=== PATIENT | male | born 1965 | race Caucasian/White ===

== ENCOUNTER 2019-01-16 07:03 | Day surgery (SDC) | payer OTHER, SELFPAY ==
[2019-01-16 07:27] VITALS: BP 118/68; PULSE 74; RESP 16; TEMP 36.3; O2SAT 99
[2019-01-16] MEDS: Lactated Ringers 1,000 ML 80 ML IV (07:48)
--- NOTE | 2019-01-16 09:08 | BOWEL_PTH ---
PATIENT: Austin Andrea LOC: [facility] U#:[id number] AGE/SX: 53/M ROOM: RE01/16/[address]: Austin Briseno III : 1965 BED: DIS: 01/16/2019 SPEC #: [id number] RECD: 01/16/19 12:51 STATUS: LAZARUS KEYES #: [id number] ITA: 01/16/19 09:[address]: Austin Briseno III DEPT: Surgical Specimen RECD BY: Genoveva Alexander ENTERED: 01/16/19 12:51 SP TYPE: Bowel OTHR DR: Clinton Jacobson Tissues: 1 - BIOPSY BOWEL Procedures: GROSS AND MICRO LEVEL 4 Comments: [id number]
--- NOTE | 2019-01-16 09:15 | W.COLOREPORT ---
Date of service: 01/16/19 Time of Service: 09:15 Colonoscopy Report Date of procedure: 01/16/19 Pre-op diagnosis general: screening colonoscopy Post-op diagnosis procedure note: other (decending flat poyp, mild sigmoid diverticulosis) Procedure: screening colonoscopy with polypectomy Surgeon: Austin Briseno III Anesthesia proc note operative: MAC Pathology: other (decending colon) Complications: None Disposition: PACU Prep: GoLYTEAIDEN Procedure Description: After informed consent was obtained the patient was taken to the procedure room and placed in a left decubitous position. Monitors were applied and a time out was done. The patients name, date of , procedure, allergies to medications and metal in their body was reviewed. The patient was then sedated. Once sedated and comfortable a rectal exam was done. External exam was normal. Internal exam revealed a normal sphincter tone and no palpable masses. The prostate normal. The scope was then introduced and retrofelexed. NO internal hemorrhoids were identified. The scope was then advanced to the cecum with no difficulty. The TI and appendiceal orifice were identified. The prep was adequate. The scope was then slowly retracted over 10 minutes back into the rectum. A Polyp were removed at descending colon. The scope was removed and the patient was woken up and taken back to Same day surgery in stable condition. The patient tolerated the procedure well and there were no immediate complications. Follow up: The patient should follow up in ? years, pending pathology, unless they develop changes in bowel habits or other new gastrointestinal complaints.
--- NOTE | 2019-01-16 09:19 | W.PM.DSUDISC ---
Discharge Plan Disposition Patient Disposition: HOME Condition: Stable Discharge Details Reason For Visit: screening colonoscopy Attending Provider: Austin Briseno III Primary Care Provider: Clinton Jacobson Home Meds and New Rx's Prescriptions: Continued coenzyme Q10 10 mg capsule 10 mg PO DAILY RF: 0 omega-3 fatty acids [Fish Oil Concentrate] 1,000 mg capsule 1,000 mg PO DAILY RF: 0 multivitamin tablet 1 tab PO DAILY RF: 0 resveratrol 50 mg capsule 50 mg PO DAILY RF: 0 cholecalciferol (vitamin D3) 1,000 unit capsule 1,000 unit PO DAILY RF: 0 yohimbe bark [Yohimbe] 500 mg capsule 500 mg PO DAILY RF: 0 bisacodyl [Dulcolax (bisacodyl)] 5 mg tablet,delayed release (DR/EC) 5 mg PO ONCE Qty: 4 RF: 0 polyethylene glycol 3350 17 gram/dose powder 255 g PO ONCE Qty: 255 RF: 0 Discharge Instructions Activity:: Activity as Tolerated Diet:: As Tolerated Discharge Orders Discharge Orders: Discharge Order (Routine); Ordered 01/16/19 Ordered By: Austin Briseno III DS: Diagnosis Discharge Diagnosis (1) Screening for colon cancer: Status: Acute (2) Polyp of descending colon: Status: Acute
[2019-01-16 09:50] VITALS: BP 125/69; PULSE 67; RESP 16; TEMP 35.6; O2SAT 99
== END 2019-01-16 10:30 | disposition home or self-care (01) ==
PROVIDERS: PCP Naturopath; Visit Provider Surgery
PROC: 0DJD8ZZ Inspection of Lower Intestinal Tract, Via Natural or Artificial Opening Endoscopic (ICD-10-PCS; CPT 45378; principal; 2019-01-16 08:45)
DX: Z12.11 Encounter for screening for malignant neoplasm of colon (principal); D12.4 Benign neoplasm of descending colon; G47.33 Obstructive sleep apnea (adult) (pediatric)
CPT/HCPCS: 45380; 88305

== ENCOUNTER 2019-07-23 11:52 | Day surgery (SDC) | payer OTHER, SELFPAY ==
[2019-07-23] VITALS (8 sets, daily range): BP systolic 130–179; BP diastolic 83–101; PULSE 64–77; RESP 12–17; TEMP 36.2–37.3; O2SAT 97–99
[2019-07-23] MEDS: Lactated Ringers 1,000 ML 100 ML IV (12:33)
--- NOTE | 2019-07-23 13:14 | PDOC.DSDIS_ITS ---
Discharge Plan Disposition Patient Disposition: HOME Condition: Good Discharge Details Reason For Visit: (R) INGUINAL HERNIA Attending Provider: Gabby Fernandes Primary Care Provider: Clinton Jacobson Home Meds and New Rx's Prescriptions: New ibuprofen 800 mg tablet 800 mg PO Q8H PRN (Reason: pain) Qty: 30 RF: 0 hydrocodone-acetaminophen 5-325 mg tablet 1 tab PO Q6H PRN PRN (Reason: pain) Qty: 14 RF: 0 Continued coenzyme Q10 10 mg capsule 10 mg PO DAILY RF: 0 omega-3 fatty acids [Fish Oil Concentrate] 1,000 mg capsule 1,000 mg PO DAILY RF: 0 multivitamin tablet 1 tab PO DAILY RF: 0 resveratrol 50 mg capsule 50 mg PO DAILY RF: 0 cholecalciferol (vitamin D3) 1,000 unit capsule 1,000 unit PO DAILY RF: 0 yohimbe bark [Yohimbe] 500 mg capsule 500 mg PO DAILY RF: 0 Discharge Instructions Additional Instructions: The top bandage can be removed tomorrow. The steri strips will usually stick for about a week. When the edges start to curl up, they can be removed. It is okay to shower tomorrow, the water can run over the steri strips Do not swim or soak in a tub for two weeks Call for any concerns including fever, increased pain, vomiting, incision redness or drainage. Do not lift more than 15 pounds for four weeks. Walking and stairs are fine. Do not drive if on narcotic pain meds or if limited by pain. If constipated, okay to use a stool softener or milk of magnesia Referrals: Gabby Fernandes MD [ [facility] STAFF PHYSICIAN] - (Return in 10-14 days) Activity:: Do not lift more than 15 pounds Remove Dressings/Wound Care:: 24 hours Shower/Bathe:: 24 hours Diet:: As Tolerated Discharge Orders Discharge Orders: Discharge Order (Routine); Ordered 07/23/19 Ordered By: Gabby Fernandes DS: Diagnosis Discharge Diagnosis (1) Right inguinal hernia: Status: Acute (2) History of right inguinal hernia repair:
[2019-07-23] MEDS: ceFAZolin 2 GM/50 ML BAG IVPB (13:22)
[2019-07-23] MEDS: Bupivacaine LIPOSOME/PF 133 MG/10 ML VIAL IJ (13:27)
[2019-07-23] MEDS: Bupivacaine 0.25% Pres-Free 30 ML VIAL (13:27)
[2019-07-23] MEDS: HYDROmorphone 2 MG/ML VIAL IVP ×3 (14:53→15:20)
[2019-07-23] MEDS: Normal Saline Flush 10 ML SYR IV (15:04)
[2019-07-23] MEDS: HYDROcodone 5/Acetaminophen 325 TAB PO (15:57)
--- NOTE | 2019-07-24 08:21 | ROE_ITS ---
REPORT OF OPERATIVE PROCEDURE DATE OF PROCEDURE July 23, 2019 PREOPERATIVE DIAGNOSIS Right inguinal hernia. POSTOPERATIVE DIAGNOSIS Right indirect inguinal hernia. PROCEDURE Right inguinal hernia repair with mesh. SURGEON Gabby Fernandes M.D. [employer] Daphne Nicole ANESTHESIA Local, TAP block and General. INDICATIONS This is a 53-year-old man who recently developed pain in his right groin with activity and also a red ucible bulge. PROCEDURE DESCRIPTION He was placed supine on the operating table and after induction of general anesthetic had a TAP block placed. His right groin was then prepped and draped sterilely. The ASIS and pubic tubercle were id entified and a small transverse incision made between these two points after injecting local anesthet ic. The subcutaneous tissue was divided with cautery. An encountered vein was clamped, divided and l igated with #3-0 Vicryl tie. The external oblique fascia had a small incision made with the knife, wh ich was then extended bluntly through the internal ring and also extended laterally. The spermatic c ord was encircled at the level of the pubic tubercle with a Seth drain. Dissection within the spe rmatic cord revealed a medium sized hernia sac. This was dissected up to the internal ring. I then op ened it. There were no abdominal contents within it, so I suture ligated the sac with a #3-0 Vicryl t ie and amputated the excess. This retracted nicely back into the abdomen. A medium mesh plug was heather cted and some of the internal peddles removed; this was sutured into the internal ring with a #2-0 Pr olene stitch in the overlying musculature and also ____ mattress suture to ____ portion of the ingui nal ligament. A flat sheet of mesh was then sewn to the floor of the inguinal canal done in Lichtenst ein fashion. The mesh was noted to not be too tight around the spermatic cord. There was good hemosta sis so the external oblique fascia was closed with a running #2-0 Vicryl, as was Eran's fascia and the skin closed with a running #4-0 Monocryl subcuticular stitch. He tolerated the procedure well an d was stable to Recovery.
== END 2019-07-23 16:45 | disposition home or self-care (01) ==
PROVIDERS: PCP Naturopath; Visit Provider Surgery
PROC: (CPT 49505; principal; 2019-07-23 13:00)
DX: K40.90 Unilateral inguinal hernia, without obstruction or gangrene, not specified as recurrent (principal); G89.18 Other acute postprocedural pain; G47.30 Sleep apnea, unspecified
CPT/HCPCS: 49505; 76942; C1781; J0690; J1100; J1885; J2405

== ENCOUNTER 2021-06-30 14:22 | Emergency (ER) | payer OTHER, SELFPAY ==
[2021-06-30] VITALS (9 sets, daily range): BP systolic 128–175; BP diastolic 78–98; PULSE 79–86; RESP 16; TEMP 37.3–37.6; O2SAT 97–99
--- NOTE | 2021-06-30 14:15 | RT.EKG_ITS ---
APPROVED REPORT Exam: Resting ECG Reason for Exam: chest pain Patient Location: E HR:89 bpm ECG Measurements Heart Rate 89 AXIS UT 70 P 60 QRSd 88 QRS -49 QT 349 T 54 QTc 424 Conclusion Sinus rhythm...normal P axis, V-rate 60- 99 Probable left atrial enlargement...P >50mS, <-0.10mV V1 Left anterior fascicular block...axis(240,-40), init forces inf. Sinus. LAFB. No STEMI. I have reviewed and interpreted ECG and agree with software generated interpretation.
--- NOTE | 2021-06-30 14:30 | DI.RAD_ITS ---
Exam(s) XR CHEST 2V PA LATERAL EXAM: XR CHEST 2V PA LATERAL CLINICAL HISTORY: palpitations TECHNIQUE: 2D digital imaging was performed. COMPARISON: No exams were available for comparison FINDINGS: MEDIASTINUM: Normal. HEART: Normal. PULMONARY VASCULATURE: Normal. LUNGS: Clear. PLEURAL SPACE: No pleural effusion or pneumothorax. BONE:Within normal limits for the patient's age. OTHER FINDINGS:Normal. IMPRESSION: No acute pulmonary findings. DATA REPOSITORY: RADIATION DOSE DELIVERED:
--- NOTE | 2021-06-30 14:41 | W.ED.GENAD ---
Discharge Plan Disposition Patient Disposition: HOME Condition: Stable Discharge Details Clinical Impression: Symptomatic PVCs, Heart palpitations Primary Care Provider: Clinton Jacobson ED Provider: Ingrid London Home Meds and New Rx's Prescriptions: Continued coenzyme Q10 10 mg capsule 10 mg PO DAILY RF: 0 omega-3 fatty acids [Fish Oil Concentrate] 1,000 mg capsule 1,000 mg PO DAILY RF: 0 multivitamin tablet 1 tab PO DAILY RF: 0 resveratrol 50 mg capsule 50 mg PO DAILY RF: 0 cholecalciferol (vitamin D3) 1,000 unit capsule 1,000 unit PO DAILY RF: 0 ibuprofen 800 mg tablet 800 mg PO Q8H PRN (Reason: pain) Qty: 30 RF: 0 No Action testosterone 75 mg Pellet 0.75 mg DIRECTED RF: 0 Discharge Instructions Instructions: Heart Palpitations (ED) Additional Instructions: Your labs are reassuring here today. We were unable to see that you have multiple PVCs correlating with when you had your symptoms while you are on the phototypesetting equipment monitor. I would like to continue on a Holter monitor to look at the further in the frequency of these throughout the course today. Please follow respiratory therapy recommendations regard to your Holter monitor. Please discuss with your auditing specialist if this could be linked to your testosterone and potential change in medication or dosing. Referral for local primary care has been sent. If you develop chest pain, shortness of breath, persistent palpitations, difficulty breathing or other new/worsening symptoms please seek care urgently once again. Referrals: Clinton Jacobson [Primary Care Provider] - Medical Decision Making Patient is a pleasant 55-year-old gentleman presents due to complaint palpitations. Reports that he has had intermittent palpitations vertically. However, over the past week he has noted the to become more frequent. States that she has been noting these palpitations typically from the hours of testing to 5 qualities at work. She denies any increased stress at work. 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 He states that these are intermittent throughout that time and he does feel skipping beats when he palpates pulse. He is not short of breath or experiencing chest pain. He denies any discomfort in his neck, back, arms. He denies any recent illness. No cough, cold, fever/chills. States that he has had issues with his historically. He denies wearing a Holter monitor. No definitive diagnosis of his palpitations changes made in the past. On exam, patient appears nontoxic. Normal cardiac auscultation at this time. He has no lower extremity edema or calf tenderness. Lungs are clear. His description to be primarily concern for PVCs or PACs. However, I am concerned with the increase and frequency. Plan for baseline labs, chest x-ray. Patient does report that he also began taking testosterone from approximately 3 weeks ago. With that time the palpitations started. However, he had noted marked increase in the past week. Question if this office could be a side effect. Patient not hypoxic, tachycardic. He is endorsing shortness of breath or pleuritic pain. I do not see any evidence to suggest pulmonary embolism at this time. History not consistent with CHF, dissection. ACS is well my differential although certainly possibility, will screen with EKG and troponin. While waiting, the patient did have episode of palpitations again. We were able to correlate this with PVCs. No runs were appreciated. There is a dorsum of his symptoms. Labs reviewed. No leukocytosis. Stable H&H. No electrolyte abnormality or significant abnormality of BNP. Troponin within normal limits. TSH within normal limits. Patient I again reviewed the testosterone. I did review the literature and did not find any evidence to suggest that symptoms are typically linked to palpitations or PVARP. However, the timeline is quite suspicious for this. I have asked that he speak further with the auditing specialist was prescribing this and ask if there is any concern. We will also start the patient on a Holter monitor sulci, many PVCs he is having per day. Patient does not have a local primary care, I have asked her care management team to help arrange for prompt follow-up with primary care to discuss his PVCs and further results that may come from his Holter monitor. Return precautions were discussed. All his questions and concerns were addressed and he is in agreement with plan. HPI General Mode of arrival: ambulatory. Date/Time Provider Initiated Documentation: 06/30/21 14:24. Limitations to Documentation: no limitations. Information obtained by: patient and RN notes reviewed. History of Present Illness 55 year old M presents to the emergency department with the chief complaint of palpitations, described as mild (denies any pain), and is localized to the chest. Patient neck. Patient started experiencing this week(s) (about 3) and it has been intermittent (episodes have increased over the past week). No relieving factors improve symptom(s), Other factors that worsen symptoms (when at work) . Patient notes no other symptoms.; denies chest pain, cough, fever/chills, loss of appetite, nausea/vomiting, shortness of breath, syncope and weakness. Patient did receive the following treatments prior to arrival, none Related Data Home Medications Medication Instructions Recorded Confirmed cholecalciferol (vitamin D3) 25 1,000 unit PO DAILY 11/19/18 06/30/21 mcg (1,000 unit) capsule coenzyme Q10 10 mg capsule 10 mg PO DAILY cap 11/19/18 06/30/21 multivitamin 1 tab PO DAILY 11/19/18 06/30/21 omega-3 fatty acids 1,000 mg 1,000 mg PO DAILY 11/19/18 06/30/21 capsule resveratrol 50 mg capsule 50 mg PO DAILY cap 11/19/18 06/30/21 ibuprofen 800 mg PO Q8H PRN #30 tab 07/23/19 06/30/21 testosterone 0.75 mg DIRECTED 06/30/21 06/30/21 Previous Rx's Medication Instructions Recorded ibuprofen 800 mg PO Q8H PRN #30 tab 07/23/19 Allergies Allergy/AdvReac Type Severity Reaction Status Date / Time No Known Allergies Allergy Verified 06/30/21 14:32 General Stated Complaint: Palpitatns RODNEY: 2 Review of Systems Constitutional Constitutional: Reports as per HPI, Denies chills, Denies fever(s), Denies headache(s), Denies lethargy and Denies poor appetite Eyes Eyes: Denies change in vision ENT Ears, Nose, Mouth, and Throat: Denies dizziness and Denies headache(s) Cardiovascular Cardiovascular: Reports as per HPI, Denies chest pain, Denies chest pain at rest, Denies chest pain with activity, Denies syncope, Reports lightheadedness, Denies radiating jaw, neck or arm pain, Reports palpitations, Denies dyspnea and Denies dyspnea on exertion Respiratory Respiratory: Reports as per HPI, Denies chest congestion, Denies cough, Denies pain on inspiration, Denies pain with cough, Denies dyspnea, Denies dyspnea on exertion and Denies wheezing Gastrointestinal Gastrointestinal: Reports as per HPI, Denies abdominal pain, Denies diarrhea, Denies nausea and Denies vomiting Genitourinary Genitourinary: Denies system reviewed and no additional complaints, except as documented (denies change in urinary habits) Musculoskeletal Musculoskeletal: Reports as per HPI and Denies back pain Integumentary/Breasts Skin/Breast: Reports as per HPI and Denies rash Neurologic Neurologic: Reports as per HPI, Denies dizziness, Denies syncope and Denies headache(s) Endocrine Endocrine: Reports palpitations Allergic/Immunologic Allergic/Immunologic: Denies wheezing [facility] Medical History (Updated 06/30/21 @ 15:43 by LARA Ewing) Abnormal colonoscopy (01/16/19) 01/16/19, Dr Austin Briseno [facility], Tubular adenoma, repeat in five years. mg Heart palpitations Hyperlipidemia Intentional weight loss Knee joint pain bilateral Sleep apnea Pt states uses CPAP Tubular adenoma (01/16/19) 01/16/19, Dr Austin Briseno [facility], Tubular adenoma, repeat in five years. mg Surgical History History of right inguinal hernia repair 07/23/19, Dr Gabby Fernandes [facility], with mesh Hx of rhinoplasty Social History Smoking/Tobacco Use Status: Never Smoking risk assessment performed?: Yes Alcohol Intake: current Alcohol Intake frequency: holidays/special occasions only Drug use: Never Substance use type: does not use Do you feel safe at home: Yes Do you feel safe in your relationship?: Yes Exam Const General: cooperative, healthy appearing, comfortable, no acute distress and well developed Nutritional Appearance: average body habitus and well nourished Orientation: alert, awake and oriented x3 Resp Effort & Inspection: normal respiratory effort, able to speak in complete sentences and no respiratory distress Auscultation: clear to auscultation bilaterally, no rales, no rhonchi and no wheezes Cardio Rate: regular rate Rhythm: regular rhythm Heart Sounds: S1 normal and S2 normal GI Inspection: normal to inspection, no edema and non-distended Palpation: soft, no hepatosplenomegaly, not firm, no guarding, not rigid and nontender Auscultation: normal bowel sounds Skin General skin exam: no rashes or lesions noted Trauma: no lacerations or abrasions Neuro General: patient alert, patient awake and patient oriented x3 Cognition: normal cognition Speech: speech normal Gait: normal gait Extrem General: normal to inspection, capillary refill normal, no pedal edema, no calf tenderness and normal gait Psych Appearance: grossly normal and well kempt Mental Status: mental status grossly normal Speech and Movement: speech and movement normal Course Vital Signs Vital signs: Vital Signs Temperature 37.3 C 06/30/21 14:26 Pulse 86 06/30/21 14:26 Respiratory Rate 16 06/30/21 14:26 Blood Pressure 175/98 H 06/30/21 14:26 Pulse Oximetry 99 06/30/21 14:26 Temperature 37.3 C 06/30/21 14:26 Temperature Source Skin 06/30/21 14:26 Pulse 86 06/30/21 14:26 Respiratory Rate 16 06/30/21 14:26 Respiratory Effort 06/30/21 14:34 Blood Pressure 175/98 H 06/30/21 14:26 Blood Pressure Position Sitting 06/30/21 14:26 Pulse Oximetry 99 06/30/21 14:26 Oxygen Delivery Method Room Air 06/30/21 14:26 Oxygen Flow Rate 0 06/30/21 14:26
[2021-06-30 14:57] LABS: Abs Immature Grans 0.01 10^3/uL (0.0-0.06); Absolute Basophil Count 0.01 10^3/uL (0.0-0.2); Absolute Eosinophil Count 0.07 10^3/uL (0.0-0.7); Absolute Lymphocyte Count 1.33 10^3/uL (1.2-3.4); Absolute Monocyte Count 0.37 10^3/uL (0.1-0.8); Absolute Neutrophil Count 3.01 10^3/uL (1.2-6.7); Basophils % 0.2; Eosinophils % 1.5; HCT 46.2 % (40.0-50.0); HGB 15.4 g/dL (13.5-17.5); Immature Grans % 0.2; Lymphocytes % 27.7; MCH 30.6 pg (27.0-33.0); MCHC 33.3 % (32.0-36.0); MCV 91.8 fL (80-95); MPV 9.2 fL (8.0-11.0); Monocytes % 7.7; Neutrophils % 62.7; Nucleated RBC 0 %; Platelet Count 147 10^3/uL (130-400); RBC 5.03 10^6/uL (4.36-5.78); RDW 14.2 % (11.8-14.1); RDW-SD 47.3 fL
[2021-06-30 15:18] LABS: ALT 22 U/L (16-63); AST 11 U/L (15-37); Albumin 3.9 g/dL (3.4-5.0); Alkaline Phosphatase 46 U/L (46-116); Anion Gap 7.4 mmol/L (3-11); BUN 10 mg/dL (7-18); Bilirubin, Total 0.7 mg/dL (0.2-1.0); CO2 29.6 mmol/L (21.0-32.0); CREATININE 1.2 mg/dL (0.70-1.30); Calcium 8.5 mg/dL (8.5-10.1); Chloride 105 mmol/L (98-107); Glucose 89 mg/dL (74-106); Magnesium 2.4 mg/dL (1.8-2.4); Potassium 3.8 mmol/L (3.5-5.1); Sodium 142 mmol/L (136-145); TSH (W/Ref FT4) 1.65 uIU/mL (0.36-3.74); Troponin I < 0.05 ng/mL (<0.06)
--- NOTE | 2021-06-30 15:30 | HOLTER_ITS ---
APPROVED REPORT Conclusion There is a 48-hour monitor ordered for indication of palpitations. The patient was in normal sinus rhythm for the majority of the recording with an average heart rate o f 80 bpm. There were no episodes of ventricular tachycardia and rare PVCs. There were no episodes of supraventricular tachycardia and rare PACs. There were no episodes of atrial fibrillation, no pauses greater than 3 seconds and no evidence of hi gh-grade heart block. There were 9 patient triggered events. All these were associated with singular PACs.
--- NOTE | 2021-06-30 19:02 | NUR.NOTE ---
Nursing Note: referral given to care management for pcp follow up - libl 06/30/21
== END 2021-06-30 16:31 | disposition home or self-care (01) ==
PROVIDERS: Emergency Provider Physician Assistant; PCP Naturopath
DX: I49.3 Ventricular premature depolarization (principal); R00.2 Palpitations
CPT/HCPCS: 36415; 80053; 93005; 99284; 71046; 83735; 84443; 84484; 85025; 93010; 93225

== ENCOUNTER 2021-06-30 15:47 | Outpatient (RCR) | payer OTHER, SELFPAY | END 2021-07-01 23:59 | disposition home or self-care (01) | LOC: RT 15:47 | PROVIDERS: PCP Naturopath; Visit Provider Physician Assistant | DX: R00.2 Palpitations (principal) | CPT/HCPCS: 93226 ==

== ENCOUNTER 2021-07-24 02:48 | Outpatient (CLI) | payer OTHER, SELFPAY ==
[2021-07-24 08:28] LABS: Calculated LDL 135 mg/dL (<100); Cholesterol 212 mg/dL (<200); HDL Cholesterol 49 mg/dL (40-60); Triglyceride 144 mg/dL (<150)
== END 2021-07-24 02:49 | disposition home or self-care (01) ==
LOC: LBO 02:48
PROVIDERS: PCP Naturopath; Visit Provider Family Medicine
DX: E78.5 Hyperlipidemia, unspecified (principal)
CPT/HCPCS: 36415; 80061

== ENCOUNTER 2024-11-03 09:03 | Outpatient (CLI) | payer BC, SELFPAY ==
[2024-11-03 08:58] LABS: Abs Immature Grans 0.01 10^3/uL (0.0-0.06); Absolute Basophil Count 0.02 10^3/uL (0.0-0.2); Absolute Eosinophil Count 0.08 10^3/uL (0.0-0.7); Absolute Lymphocyte Count 1.08 10^3/uL (1.2-3.4); Absolute Neutrophil Count 3.12 10^3/uL (1.2-6.7); Basophils % 0.4 %; Eosinophils % 1.7 %; HCT 54.7 % (40.0-50.0); HGB 18.6 g/dL (13.5-17.5); Immature Grans % 0.2 %; Lymphocytes % 22.9 %; MCH 31.4 pg (27.0-33.0); MCV 92 fL (80-95); MPV 9.2 fL (8.0-11.0); Monocytes % 8.5 %; Neutrophils % 66.3 %; Platelet Count 155 10^3/uL (130-400); RBC 5.92 10^6/uL (4.36-5.78); RDW 12.6 % (11.8-14.1); RDW-SD 43.5 fL; WBC 4.71 10^3/uL (4.4-10.8)
[2024-11-03 09:05] LABS: Bilirubin Negative (Negative); Blood Trace-intact (Negative); Clarity Clear (Clear); Glucose Negative (Negative); Ketones Negative (Negative); Leukocyte Esterase Negative (Negative); Nitrite Negative (Negative); Urobilinogen 0.2 mg/dL (Up to 0.2)
[2024-11-03 09:09] LABS: Hemoglobin A1C 5.4 % (<5.7)
[2024-11-03 09:22] LABS: Bacteria Rare HPF (Negative); C & S Indicated? No; Casts Negative LPF (Negative); Crystals Negative HPF (Negative); Epithelial Cells Negative HPF (Negative); Mucus Negative (Negative); Other Cells Negative (Negative); RBC 0-2 HPF (0-2); WBC 0-2 HPF (0-5)
[2024-11-03 09:48] LABS: ALT 26 U/L (16-63); AST 16 U/L (15-37); Alkaline Phosphatase 57 U/L (46-116); Anion Gap 5.2 mmol/L (3-11); BUN 16 mg/dL (7-18); CO2 33.8 mmol/L (21.0-32.0); CREATININE 1.3 mg/dL (0.70-1.30); Calcium 8.8 mg/dL (8.5-10.1); Calculated LDL 117 mg/dL (<100); Chloride 104 mmol/L (98-107); Cholesterol 223 mg/dL (<200); Estimated GFR 64.07 (mL/min/1.73m2); Glucose 102 mg/dL (74-106); HDL Cholesterol 58 mg/dL (40-60); Potassium 3.9 mmol/L (3.5-5.1); Sodium 143 mmol/L (136-145); TSH 1.77 uIU/mL (0.36-3.74); Total Protein 7.5 g/dL (6.4-8.2); Triglyceride 240 mg/dL (<150); Vitamin B12 952 pg/mL (193-986); Vitamin D 25 Total 22.8 ng/mL (30-100)
[2024-11-03 21:22] LABS: CRP, High Sensitivity 1.75 mg/L (See Note)
[2024-11-04 13:32] LABS: ANA Interpretation Negative (Negative)
[2024-11-06 10:45] LABS: Apolipoprotein A1, S 147 mg/dL (>=120); Apolipoprotein B, S 117 mg/dL (See Comment); Apolipoprotein B/A 1 ratio 0.8 (See Comment)
[2024-11-10 11:47] LABS: Testosterone, Free 27.2 ng/dL (3.87-14.7); Testosterone, Total 853 ng/dL (240-950)
== END 2024-11-03 09:04 | disposition home or self-care (01) ==
LOC: LBO 09:03
PROVIDERS: PCP Family Medicine; Visit Provider Naturopath
DX: E66.3 Overweight (principal); R53.83 Other fatigue; H93.13 Tinnitus, bilateral; I10 Essential (primary) hypertension; E78.00 Pure hypercholesterolemia, unspecified; G25.81 Restless legs syndrome; I48.3 Typical atrial flutter; M47.27 Other spondylosis with radiculopathy, lumbosacral region; Z13.1 Encounter for screening for diabetes mellitus; D53.9 Nutritional anemia, unspecified; R35.0 Frequency of micturition; E55.9 Vitamin D deficiency, unspecified
CPT/HCPCS: 36415; 80053; 80061; 82172; 82306; 84402; 84403; 86141; 81003; 81015; 82607; 83036; 84443; 85025; 86038

== ENCOUNTER 2024-11-20 11:21 | Day surgery (SDC) | payer BC, SELFPAY ==
[2024-11-20] MEDS: Normal Saline 1,000 ML 30 ML IV (11:50)
[2024-11-20 11:51] VITALS: BP 150/90; PULSE 92; RESP 20; TEMP 36.2; O2SAT 97
--- NOTE | 2024-11-20 11:59 | W.ANESPRE ---
General Info Date of Service Date Performed: 11/20/24 Height: 6 ft 2 in Weight: 90.2 kg Body Mass Index (BMI): 25.5 Surgical Procedure: Operation Date: 11/20/24 10:50 Proposed Procedure Side Surgeon p Colonoscopy Zoe Ascencio, DO Actual Procedure Side Surgeon p Colonoscopy Not Applicable Zoe Ascencio, DO Meds Allergies and Home Medications Allergies Allergy/AdvReac Type Severity Reaction Status Date / Time No Known Allergies Allergy Verified 11/20/24 11:48 Home Medication ?Medication ?Instructions ?Recorded cholecalciferol (vitamin D3) 25 1,000 unit PO DAILY 11/19/18 mcg (1,000 unit) capsule coenzyme Q10 10 mg capsule 10 mg PO DAILY 11/19/18 multivitamin 1 tab PO DAILY 11/19/18 omega-3 fatty acids 1,000 mg 1,000 mg PO DAILY 11/19/18 capsule (Fish Oil Concentrate) resveratrol 50 mg capsule 50 mg PO DAILY 11/19/18 bisacodyl 5 mg tablet,delayed 5 mg PO ONCE colonscopy bowel prep 11/02/24 release (Dulcolax (bisacodyl)) #4 tabs polyethylene glycol 3350 17 238 g PO ONCE colonoscopy prep 11/02/24 gram/dose oral powder #238 grams Current Visit Medications: Current Medications Generic Name Dose Route Start Last Admin Trade Name Freq PRN Reason Stop Dose Admin Hyoscyamine Sulfate 0.125 mg 11/20/24 00:02 Hyoscyamine 0.125 Mg Sl/Oral/Chew SL 12/20/24 00:01 DIRECTED PRN Sodium Chloride 1,000 mls @ 30 mls/hr 11/20/24 11:15 Saline 1000ml Bag IV 12/20/24 11:14 INFUSION RUDI IV Miscellaneous Supplies 1 each 11/20/24 11:15 Iv Access IV 12/20/24 11:14 DIRECTED RUDI Ondansetron HCl 4 mg 11/20/24 00:02 Ondansetron 4 Mg/2 Ml Vial IVP 12/20/24 00:01 Q4H PRN PRN Nausea / Vomiting Sodium Chloride 0 ml 11/20/24 09:39 Normal Saline Flush 10 Ml Syr IVP 12/20/24 09:38 PRN PRN Sodium Chloride 0 ml 11/20/24 20:00 Normal Saline Flush 10 Ml Syr IVP 12/20/24 19:59 BID RUDI Sodium Chloride 0 ml 11/20/24 09:39 Normal Saline 10 Ml Vial IJ 12/20/24 09:38 DIRECTED PRN PFSH Active Problems Active Problems: Problem Status Onset Code Bilateral tinnitus Acute H93.13 Tinnitus Acute H93.19 Cellulitis of elbow Acute L03.119 Premature atrial beats Acute I49.1 Postop check Acute Z09 Right inguinal hernia Acute K40.90 Screening for colon cancer Acute Z12.11 Polyp of descending colon Acute D12.4 Heart palpitations Chronic R00.2 Knee joint pain Chronic M25.569 Intentional weight loss Acute Hyperlipidemia Chronic E78.5 Sleep apnea Chronic ~04/2018 G47.30 Medical History Medical History Abnormal colonoscopy (01/16/19) 01/16/19, Dr Austin Briseno [facility], Tubular adenoma, repeat in five years. mg Tubular adenoma (01/16/19) 01/16/19, [facility] Quiroz, Tubular adenoma, repeat in five years. mg Surgical History Surgical History History of surgical procedure on maxillary sinus pt. just reports jaw surgery History of right inguinal hernia repair 07/23/19, Dr Gabby Fernandes [facility], with mesh Hx of rhinoplasty Tobacco Smoking/Tobacco Use Status: Never Passive smoking exposure: Yes Alcohol Alcohol Intake: current Alcohol intake frequency: holidays/special occasions only Substance Use Substance use: Never Substance use type: does not use Details: alcohol: t-60 Vital Signs and Lab Results Vital Signs Most Recent Vital Signs in EMR: Most Recent Vital Signs Temp Pulse Resp BP Pulse Ox 36.2 C L 92 H 20 150/90 H 97 11/20/24 11:51 11/20/24 11:51 11/20/24 11:51 11/20/24 11:51 11/20/24 11:51 Lab Results Blood Type / Crossmatch: No Data to Display Complete Blood Count: White Blood Count 4.71 10^3/uL (4.4-10.8) 11/03/24 08:48 Red Blood Count 5.92 10^6/uL (4.36-5.78) H 11/03/24 08:48 Hemoglobin 18.6 g/dL (13.5-17.5) H 11/03/24 08:48 Hematocrit 54.7 % (40.0-50.0) H 11/03/24 08:48 Platelet Count 155 10^3/uL (130-400) 11/03/24 08:48 Complete Metabolic Panel: Sodium 143 mmol/L (136-145) 11/03/24 08:48 Potassium 3.9 mmol/L (3.5-5.1) 11/03/24 08:48 Chloride 104 mmol/L (98-107) 11/03/24 08:48 Carbon Dioxide 33.8 mmol/L (21.0-32.0) H 11/03/24 08:48 BUN 16 mg/dL (7-18) 11/03/24 08:48 Creatinine 1.3 mg/dL (0.70-1.30) 11/03/24 08:48 Est GFR (CKD-EPI 2020) 64.07 (mL/min/1.73m2) 11/03/24 08:48 Calcium 8.8 mg/dL (8.5-10.1) 11/03/24 08:48 Albumin 4.0 g/dL (3.4-5.0) 11/03/24 08:48 Glucose 102 mg/dL (74-106) 11/03/24 08:48 Hemoglobin A1c 5.4 % (<5.7) 11/03/24 08:48 Liver Function Panel: Alanine Aminotransferase (ALT/SGPT) 26 U/L (16-63) 11/03/24 08:48 Aspartate Amino Transf (AST/SGOT) 16 U/L (15-37) 11/03/24 08:48 Coagulation Panel: No Data to Display Cardiac Panel: No Data to Display Arterial Blood Gas: No Data to Display Venous Blood Gas: No Data to Display Pancreas Panel: No Data to Display Thyroid Panel: Thyroid Stimulating Hormone (TSH) 1.77 uIU/mL (0.36-3.74) 11/03/24 08:48 Infectious Disease: No Data to Display Blood Cultures: No Data to Display Toxicology Panel: No Data to Display Anesthesia Assessment and Plan Anesthesia History Personal History: No History of Anesthesia Complications Family History: No Family History of Anesthesia Complications Exercise Tolerance Exercise Tolerance: Metabolic Equivalents>4 Pertinent Negatives Pertinent Negatives: No Symptoms of GERD, No Major Cardiovascular Symptoms or Complaints and No Major Pulmonary Symptoms or Complaints Cardiac & Pulmonary Exam Cardiac Exam: Normal S1/S2 Heart Sounds Pulmonary Exam: Clear Bilateral Breath Sounds Implantable Cardiac Device Does patient have a Pacemaker or an ICD?: No Airway Exam Known Difficult Airway: No Mallampati Class: 2 Mouth Opening: Normal (> 3cm) Thyromental Distance: Greater than 3 cm Neck Range of Motion: Full ROM Neck Circumference: Normal Teeth Condition: Normal Dentition ASA Classification ASA Score: ASA 2 Emergency Case?: No NPO Status NPO Status: NPO Clears >2 hours, Solids >8 hours Anesthesia Plan Resuscitation Status: Full Code Anesthesia Technique: General Anesthesia Airway Planned: Natural Airway Monitors Used: Standard Monitors
[2024-11-20 12:00] VITALS: BMI 25.5
--- NOTE | 2024-11-20 12:11 | W.PM.HP.N ---
Date of service: 11/20/24 Time of Service: 12:11 Assessment and Plan Assessment and plan (1) Hyperlipidemia: Status: Chronic (2) Screening for colon cancer: Status: Acute (3) Polyp of descending colon: Status: Acute (4) Sleep apnea: Status: Chronic (5) Tubular adenoma: History of Present Illness Narrative: Pt seen at the request of PCP regarding colon cancer screening. Pt has had a colon cancer screening before.? He did have colon polyps in the past and was recommended to have a repeat colonoscopy in 5 years time they denies problems with constipation, diarrhea.? They deny any pain or difficulty with bowel movements, or rectal bleeding.? There is no family history of any colon cancer.? Pt has not had any weight loss.? Their appetite is good.? ?They deny heart, lung, or kidney problems. They are not having heartburn or indigestion. They have not had any prior colo-rectal surgery.? he has not had a prior prostate surgery or XRT.? They deny any problems with anesthesia in the past. Anesthesia: general (without airway) Previous surgical intolerances: No Previous surgical complications: No Pulmonary risk factors: No No NH/CVA Planned procedure: Yes Sleep apnea risks: Yes/ uses CPAP COPD/Asthma/Smoker: No Can climb one flight of stairs (12-13 steps) in less than 30 seconds without stopping and without symptoms: Yes The surgery proposed for this patient is: low risk Active cardiac conditions: none Active risk factors: none ASA (acetylsalicylic acid): not used Beta blockers: not used Kidneys: no concerns DM: No ?Patient needs to be Natural airway general because of:? Medical conditions/airway control/ ?Pain control? Meds/NKDA/PMHx/PSHx: [facility] ?ROS: 4 point ROS neg other than the symptoms noted above in the HPI. PHYSICAL EXAM GENERAL APPEARANCE: Alert, healthy appearance, oriented, in no acute distress HEAD, EYES, EARS, NECK, and Throat: Head is normocephalic, pupils equal, round, reactive to light and accommodation, ocular movement intact, sclera clear and no jaundice.? Dentition intact. NECK: Supple, no lymphadenopathy,? LUNGS: normal respiratory excursion, clear to auscultation bilaterally HEART: Regular rate and rhythm, normal heart sounds,? EXTREMITY: No edema or cyanosis,? ABDOMEN: soft and non-tender today with normal BS.? NEURO: CN: Intact.? Plan: Colonoscopy w/ general & natural airway. Informed consent is obtained for the procedural (explained in simple layman's terms that?the pt and/or family could understand) explaining risks vs benefits and alternatives to the procedure and consequences if we do not do the procedure and need/rational for the procedure. Risks include but are not limited to: bleeding, infection, perforation of colon.? This would necessitate emergency surgery to repair the damage w/ possible ostomy; and other associated complications w/ the required surgery. ? Also complications of anesthesia including aspiration, NH/CVA/. I discussed with the?patient would they could expect during the procedure, post procedure and recovery time and risks.? The patient understands that they need to have a ride home after the procedure.? Generally Colonoscopy does not require antibiotics prophylaxis, except in rare circumstances- PFSH All Active Problems Bilateral tinnitus (Acute) Tinnitus (Acute) Cellulitis of elbow (Acute) Premature atrial beats (Acute) Postop check (Acute) Right inguinal hernia (Acute) Screening for colon cancer (Acute) Polyp of descending colon (Acute) Heart palpitations (Chronic) Knee joint pain (Chronic) bilateral Intentional weight loss (Acute) Hyperlipidemia (Chronic) 2020- Montague score 6.9%, statins not indicated Sleep apnea (Chronic ~04/2018) Pt states uses CPAP Medical History Abnormal colonoscopy (01/16/19) 01/16/19, JUSTIN Quiroz, Tubular adenoma, repeat in five years. mg Tubular adenoma (01/16/19) 01/16/19, DES Quiroz, Tubular adenoma, repeat in five years. mg Surgical History History of surgical procedure on maxillary sinus pt. just reports jaw surgery History of right inguinal hernia repair 07/23/19, Dr Gabby Fernandes, [facility], with mesh Hx of rhinoplasty Family History Mother Diabetes Anxiety Father Heart disease Social History Smoking/Tobacco Use Status: Never Smoking risk assessment performed?: Yes Alcohol Intake: current Alcohol Intake frequency: holidays/special occasions only Drug use: Never Substance use type: does not use Details: alcohol: t-60 Caregiver/Support person: Yes Foster care: No Household members: family Housing: house Number of Children: 3 Communication Needs: None Education Level: master's degree Do you need help understanding health information?: Rarely 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 Pets and animals: Yes (1 cat; 2 dogs) Pets and animals: cat(s) and dog(s) Sexually active: Yes Do you think of yourself as: straight/heterosexual Current gender identity: male What is your relationship status?: How often do you talk on the phone with friends or family?: three or more times per week How often do you get together with friends or relatives?: three or more times per week Do you belong to any clubs or organized social groups?: yes Panel score (0-1 are the most socially isolated patients): 3 What type of physical activity do you participate in: walking, weight lifting and other Duration: 30-45 minutes/day Frequency: 3-4 times per week Latisha/Baptism: Yarsani Special latisha needs: No Seatbelt use: always Helmet use: Yes Drive intox or ride w/intox utility driver: No Working smoke detector in home: Yes Fire extinguisher in home: Yes Carbon monox detector in home: Yes Do you feel safe at home: Yes Do you feel safe in your relationship?: Yes Additional Social history: UTAP Meds Allergies and Home Medications Allergies Allergy/AdvReac Type Severity Reaction Status Date / Time No Known Allergies Allergy Verified 11/20/24 11:48 Home Medications ?Medication ?Instructions ?Recorded ?Confirmed ?Type cholecalciferol (vitamin D3) 25 1,000 unit PO DAILY 11/19/18 11/20/24 History mcg (1,000 unit) capsule coenzyme Q10 10 mg capsule 10 mg PO DAILY 11/19/18 11/20/24 History multivitamin 1 tab PO DAILY 11/19/18 11/20/24 History omega-3 fatty acids 1,000 mg 1,000 mg PO DAILY 11/19/18 11/20/24 History capsule (Fish Oil Concentrate) resveratrol 50 mg capsule 50 mg PO DAILY 11/19/18 11/20/24 History bisacodyl 5 mg tablet,delayed 5 mg PO ONCE colonscopy bowel prep 11/02/24 11/20/24 Rx release (Dulcolax (bisacodyl)) #4 tabs polyethylene glycol 3350 17 238 g PO ONCE colonoscopy prep 11/02/24 11/20/24 Rx gram/dose oral powder #238 grams Results Last Vital Signs Temp 36.2 C L 11/20/24 11:51 Pulse 92 H 11/20/24 11:51 Resp 20 11/20/24 11:51 BP 150/90 H 11/20/24 11:51 Pulse Ox 97 11/20/24 11:51 Time Spent Time spent with Patient: <40 minutes Time was spent: preparing to see the patient(eg.review tests), obtaining and/or reviewing separately otained hiistory, ordering medications,tests, procedures, referring, communicating with other health healthcare educator, indepentently interpreting results, counseling the patient, care coordination and other
--- NOTE | 2024-11-20 12:40 | BOWEL_PTH ---
PATIENT: Austin Andrea LOC: [facility] U#:[id number] AGE/SX: 58/M ROOM: RE11/20/[address]: Zoe Ascencio : 1965 BED: DIS: 11/20/2024 SPEC #: [id number] RECD: 11/20/24 13:07 STATUS: LAZARUS RELuma #: [id number] ITA: 11/20/24 12:[address]: Zoe Ascencio DEPT: Surgical Specimen RECD BY: Genoveva Alexander ENTERED: 11/20/24 13:08 SP TYPE: Bowel OTHR DR: Hugo Lerma DO Tissues: 1 - BIOPSY BOWEL 2 - BIOPSY BOWEL 3 - BIOPSY BOWEL Procedures: GROSS AND MICRO LEVEL 4 Comments: [id number]
[2024-11-20 12:57] VITALS: BP 114/77; PULSE 92; RESP 20; TEMP 36.6; O2SAT 93
--- NOTE | 2024-11-20 13:05 | W.ANESPOSTOP ---
Postoperative Evaluation Date, Time and Location Date Performed: 11/20/24 Time Performed: 13:05 Patient Location: Day Surgery Unit Vital Signs Most Recent Imported Vital Signs: Most Recent Vital Signs Temp Pulse Resp BP Pulse Ox 36.6 C 92 H 20 114/77 93 11/20/24 12:57 11/20/24 12:57 11/20/24 12:57 11/20/24 12:57 11/20/24 12:57 Pain Score Most Recent Pain Score: Most Recent Pain Score Pain Level 0 11/20/24 11:51 Assessment Mental Status: Awake (Alert & Oriented to Patient Baseline) Airway and Respiratory Function: Patent airway with normal (patient baseline) respiratory exam Cardiovascular Function: Hemodynamically Stable Hydration Status: Adequately Hydrated Nausea & Vomiting: No Nausea or Vomiting Pain: Pt. Denies Any Pain Peripheral Nerve Block: Patient did not receive a nerve block
[2024-11-20 13:25] VITALS: BP 127/86; PULSE 96; RESP 20; TEMP 36.5; O2SAT 97
--- NOTE | 2024-11-20 14:16 | W.COLOREPORT ---
Date of service: 11/20/24 Time of Service: 14:16 Colonoscopy Report Date of procedure: 11/20/24 Pre-op diagnosis general: hx of polyps Post-op diagnosis procedure note: same (Primo acevedo) Surgeon: Zoe Ascencio Anesthesia Type: General:No Airway Estimated blood loss (mL): 2 Pathology: other Complications: None Disposition: same day Prep: Miralax/Dulcolax Retraction Time: 22 Procedure Description: After informed consent was obtained, explaining risks of the procedure, including but not limits to: bleeding, infections, complications of anesthesia, perforations (which may require antibiotics and /or surgery and stay in the hospital), and abdominal pain/cramping. The patient was taken to the procedure room and placed in a left decubitous position. Monitors were applied and a time out was done. The patients name, date of , procedure, allergies to medications and metal in their body was reviewed. The patient was then sedated. Once sedated and comfortable a rectal exam was done. External exam was normal. Internal exam revealed a normal sphincter tone and no palpable masses. The prostate no palpable masses. The previously lubricated Olympus scope was then introduced (see RN notes for scope number) and retrofelexed. No internal hemorrhoids were identified. The scope was then advanced to the cecum without difficulty. The TI and appendiceal orifice were identified. The scope was then slowly retracted over minutes back into the rectum. Polyps: A flat, .75cm polyp was found at 50cm. This was removed with a cold biting forceps. A flat, 1 cm polyp was found at 70cm. This was injected w/ EverLift so we could use a cold snare on the polyp. This was removed with a cold biting forceps. All of the specimen was retrieved. A clip is placed over the defect. A flat, .5cm polyp was found in the rectum. This was removed w/ a cold biting forcept. This will be sent to pathology. There is no bleeding noted from the polypectomy site. Diverticula: No the mucosa is pink and healthy w/ a normal vascular pattern. The scope was removed, and the patient was woken up and taken back to Same day surgery in stable condition. The patient tolerated the procedure well and there were no immediate complications. Follow up: The patient should follow up in 3-5 years, unless they develop changes in bowel habits or other new gastrointestinal complaints. [place] Bowel Prep [place] Bowel Prep Right Colon: 3 Left Colon: 3 Transverse Colon: 3 Total Score: 9
--- NOTE | 2024-11-20 14:17 | PDOC.DSDIS_ITS ---
Date of service: 11/20/24 Discharge Plan Disposition Patient Disposition: Home Discharge Details Reason For Visit: Colon cancer screening Attending Provider: Zoe Ascencio Primary Care Provider: Hugo Lerma Home Meds and New Rx's Prescriptions: Continued coenzyme Q10 10 mg capsule 10 mg PO DAILY omega-3 fatty acids [Fish Oil Concentrate] 1,000 mg capsule 1,000 mg PO DAILY multivitamin tablet 1 tab PO DAILY resveratrol 50 mg capsule 50 mg PO DAILY cholecalciferol (vitamin D3) 1,000 unit capsule 1,000 unit PO DAILY Discontinued polyethylene glycol 3350 17 gram/dose powder 238 g PO ONCE Qty: 238 0RF Rx Instructions: take per colonoscopy instructions bisacodyl [Dulcolax (bisacodyl)] 5 mg tablet,delayed release (DR/EC) 5 mg PO ONCE Qty: 4 0RF Rx Instructions: take per colonoscopy instructions Discharge Instructions Additional Instructions: DSU Colonoscopy Post- Op Instructions Instructions for Everyone who is given Anesthesia: For your safety, please do the following for the next twenty-four (24) hours: *Do Not operate a motor vehicle (car, truck, motorcycle, etc.) *Do Not drink alcoholic beverages or use any recreational drugs for the first 24 hours or while taking pain medications. The medications in your body may have a reaction that can be dangerous. *Do Not make any important decisions or sign any important papers. Findings: X 3 polyps Follow up: My office will send you a letter in 3 to 4 weeks with the results of the pathology and when we want you to repeat the colonoscopy, approximately 3 to 5 years time. 1. No lifting over 20 pounds or strenuous activity for the first 24 hours after your procedure. After 24 hours there are no restrictions on your activity but you may feel fatigued for a few days. 2. After you arrive home you may have a light meal and return to your normal diet as you can tolerate it without feeling sick to your stomach. 3. You may have a bloated, gaseous feeling in your belly (abdomen) after a colonoscopy. Passing gas and belching will help. Walking or lying down on your left side with your knees flexed may relieve the discomfort. Call the office at [phone] (Office) or [phone] (Hospital) right away if you notice any of the following: a.Vomiting of blood or ?coffee ground stools?. b.Rectal bleeding 1Tbsp, blood clots or continuous bleeding. c.Severe belly (abdominal) pain. d.A hard distended belly (abdomen) and an inability to pass gas. 4. Please don?t expect to have a normal BM (bowel movement) for 2-3 days after your procedure. 5. If there are questions regarding the findings of your procedure, please contact your doctor 6. If you are unable to contact your doctor with a problem, contact the hospital at [phone]. 7. Continue all your regular medications unless directed otherwise. I understand the above instructions and have no questions. Signature of Patient or Adult Escort Name of Responsible Adult Escort Signature of Nurse Date/Time Stand Alone Forms: Anesthesia Discharge Inst., Celestine Trevino (DSU) Activity:: See above Diet:: See above Discharge Orders Discharge Orders: Discharge Order (Routine); Ordered 11/20/24 Ordered By: Zoe Ascencio DS: Diagnosis Discharge Diagnosis (1) Hyperlipidemia: Status: Chronic (2) Screening for colon cancer: Status: Acute (3) Polyp of descending colon: Status: Acute Asessment and Plan: The patient is seen and examined after their colonoscopy.? The patient has been able to pass gas.? They are not having abdominal pain.? They have been able to tolerate liquids and a snack.? They do not have any nausea or vomiting.? They are not having any chest pain or shortness of breath.??? They are not having any rectal bleeding. Their vital signs have been stable-see nursing notes. We discussed findings during their colonoscopy, and any biopsies that were done/polyps that were removed. The patient will be sent a letter with any biopsy results, and when to repeat the colonoscopy.-see discharge instructions. Patient was given explicit instructions to follow-up regarding colonoscopy-refer to discharge instructions.? We reviewed resumption of medications. Patient verbalized understanding and discharged in stable and satisfactory condition- See nursing notes. (4) Sleep apnea: Status: Chronic (5) Tubular adenoma:
== END 2024-11-20 14:30 | disposition home or self-care (01) ==
PROVIDERS: PCP Family Medicine; Visit Provider Surgery
PROC: 0DJD8ZZ Inspection of Lower Intestinal Tract, Via Natural or Artificial Opening Endoscopic (ICD-10-PCS; CPT 45378; principal; 2024-11-20 10:45)
DX: Z12.11 Encounter for screening for malignant neoplasm of colon; G47.30 Sleep apnea, unspecified; D12.4 Benign neoplasm of descending colon; K62.1 Rectal polyp; D12.5 Benign neoplasm of sigmoid colon
CPT/HCPCS: 45385; 45380; 45381; 88305; J2003; J2704

== ENCOUNTER 2025-02-08 04:18 | Outpatient (CLI) | payer BC, SELFPAY ==
[2025-02-13 17:30] LABS: Testosterone, Free 17.2 ng/dL (3.87-14.7); Testosterone, Total 642 ng/dL (240-950)
== END 2025-02-08 04:19 | disposition home or self-care (01) ==
LOC: LBO 04:18
PROVIDERS: PCP Family Medicine; Visit Provider Naturopath
DX: R53.83 Other fatigue (principal)
CPT/HCPCS: 36415; 84402; 84403

== ENCOUNTER 2025-08-09 07:30 | Outpatient (CLI) | payer BC, SELFPAY ==
[2025-08-09 11:02] LABS: Abs Immature Grans 0.03 10^3/uL (0.0-0.06); HCT 55.8 % (40.0-50.0); Immature Grans % 0.5 %; MCH 31.3 pg (27.0-33.0); MCHC 34.4 % (32.0-36.0); MCV 91 fL (80-95); MPV 9.3 fL (8.0-11.0); Platelet Count 151 10^3/uL (130-400); RBC 6.14 10^6/uL (4.36-5.78); RDW 12.5 % (11.8-14.1); RDW-SD 42.1 fL; WBC 5.81 10^3/uL (4.4-10.8)
[2025-08-09 11:07] LABS: Glucose Negative (Negative)
[2025-08-09 11:16] LABS: HGB 19.2 g/dL (13.5-17.5)
[2025-08-09 11:33] LABS: C & S Indicated? No; RBC 0-2 HPF (0-2); WBC 0-2 HPF (0-5)
[2025-08-09 11:48] LABS: Iron 66 ug/dL (65-175); Total Iron Binding Capacity 333 ug/dL (250-450); Transferrin Sat 20 % (20-55)
[2025-08-09 12:13] LABS: ALT 18 U/L (16-63); AST 16 U/L (15-37); Albumin 4.0 g/dL (3.4-5.0); Alkaline Phosphatase 52 U/L (46-116); Anion Gap 7.4 mmol/L (3-11); BUN 14 mg/dL (7-18); Bilirubin, Total 1.1 mg/dL (0.2-1.0); CO2 29.6 mmol/L (21.0-32.0); Calcium 8.9 mg/dL (8.5-10.1); Chloride 102 mmol/L (98-107); Estimated GFR 63.68 (mL/min/1.73m2); GGT 20 U/L (15-85); Glucose 89 mg/dL (74-106); LDH 160 U/L (85-227); Magnesium 2.4 mg/dL (1.8-2.4); Potassium 3.8 mmol/L (3.5-5.1); Sodium 139 mmol/L (136-145); TSH 0.88 uIU/mL (0.36-3.74); Total Protein 7.3 g/dL (6.4-8.2); Uric Acid 6.3 mg/dL (3.5-7.2)
[2025-08-09 12:42] LABS: Hemoglobin A1C 5.4 % (<5.7)
[2025-08-09 12:47] LABS: Calculated LDL 129 mg/dL (<100); Cholesterol 204 mg/dL (<200); Ferritin 125 ng/mL (26-388); HDL Cholesterol 43 mg/dL (>or=40); T4 6.7 ug/dL (4.7-13.3); Triglyceride 160 mg/dL (<150); Vitamin D 25 Total 33 ng/mL (30-100)
[2025-08-09 16:58] LABS: Fibrinogen 323 mg/dL (171-384)
[2025-08-09 17:00] LABS: CRP, High Sensitivity 2.46 mg/L (See Note)
[2025-08-09 17:15] LABS: T3,Free 4.2 pg/mL (2.8-5.3)
[2025-08-09 17:29] LABS: T3, Total 115 ng/dL (97-169)
[2025-08-13 10:08] LABS: T3 (Triiodothyronine) Reverse 26 ng/dL (10-24)
== END 2025-08-09 07:31 | disposition home or self-care (01) ==
LOC: LBO 08-10 07:30
PROVIDERS: PCP Family Medicine; Visit Provider Naturopath
DX: K63.5 Polyp of colon (principal); I10 Essential (primary) hypertension; E78.00 Pure hypercholesterolemia, unspecified; H93.13 Tinnitus, bilateral; E66.3 Overweight; M47.27 Other spondylosis with radiculopathy, lumbosacral region; R53.83 Other fatigue; G25.81 Restless legs syndrome; F43.12 Post-traumatic stress disorder, chronic; I48.3 Typical atrial flutter; R42 Dizziness and giddiness; D50.9 Iron deficiency anemia, unspecified; Z13.1 Encounter for screening for diabetes mellitus; E55.9 Vitamin D deficiency, unspecified; R35.0 Frequency of micturition
CPT/HCPCS: 36415; 80053; 80061; 82306; 83090; 84479; 85384; 86141; 81003; 81015; 82728; 82977; 83036; 83540; 83550; 83615; 83735; 84100; 84436; 84439; 84443; 84480; 84481; 84482; 84550; 85025; 86376; 86800

== ENCOUNTER 2025-08-25 09:01 | Outpatient (CLI) | payer BC, SELFPAY ==
--- NOTE | 2025-08-25 09:15 | RT.EKG_ITS ---
APPROVED REPORT Exam: Resting ECG Reason for Exam: HX of Afib Patient Location: O HR:93 bpm ECG Measurements Heart Rate 93 AXIS IN 146 P 69 QRSd 91 QRS -62 QT 339 T 45 QTc 422 Conclusion Sinus rhythm...normal P axis, V-rate 50- 99 Left anterior fascicular block Late transition
== END 2025-08-25 09:02 | disposition home or self-care (01) ==
PROVIDERS: PCP Family Medicine; Visit Provider Naturopath
DX: R00.0 Tachycardia, unspecified (principal)
CPT/HCPCS: 93005; 93010

== ENCOUNTER 2025-09-16 05:24 | Outpatient (CLI) | payer BC, SELFPAY ==
[2025-09-16 12:53] LABS: Abs Immature Grans 0.00 10^3/uL (0.0-0.06); HCT 55.2 % (40.0-50.0); HGB 18.9 g/dL (13.5-17.5); Immature Grans % 0.0 %; MCH 30.8 pg (27.0-33.0); MCHC 34.2 % (32.0-36.0); MCV 90 fL (80-95); MPV 9.5 fL (8.0-11.0); Platelet Count 144 10^3/uL (130-400); RBC 6.13 10^6/uL (4.36-5.78); RDW 11.7 % (11.8-14.1); RDW-SD 38.6 fL; WBC 4.40 10^3/uL (4.4-10.8)
[2025-09-16 13:02] LABS: Glucose Negative (Negative)
[2025-09-16 13:17] LABS: C & S Indicated? No; RBC 0-2 HPF (0-2); WBC 0-2 HPF (0-5)
[2025-09-16 13:18] LABS: Bilirubin, Direct 0.2 mg/dL (0.0-0.2)
[2025-09-19 15:18] LABS: Apolipoprotein A1, S 149 mg/dL (>=120); Apolipoprotein B, S 115 mg/dL (See Comment); Apolipoprotein B/A 1 ratio 0.8 (See Comment)
[2025-09-23 21:26] LABS: Testosterone, Free 43.5 pg/mL (35.0-155.0)
== END 2025-09-16 05:25 | disposition home or self-care (01) ==
LOC: LBO 05:24
PROVIDERS: PCP Family Medicine; Visit Provider Naturopath
DX: R00.0 Tachycardia, unspecified (principal); I10 Essential (primary) hypertension; H93.13 Tinnitus, bilateral; E78.00 Pure hypercholesterolemia, unspecified; K63.5 Polyp of colon; E66.3 Overweight; M47.27 Other spondylosis with radiculopathy, lumbosacral region; R53.83 Other fatigue; G25.81 Restless legs syndrome; I48.3 Typical atrial flutter; R42 Dizziness and giddiness; R30.9 Painful micturition, unspecified
CPT/HCPCS: 36415; 82172; 83695; 84402; 84403; 81003; 81015; 82248; 85025